=== PATIENT | male | born 1975 | race Hispanic/Latino ===

== ENCOUNTER 2017-12-09 12:16 | Emergency (ER) | payer SELFPAY ==
[2017-12-09] MEDS ORDERED: IPRATROPIUM/ALBUTEROL SULFATE 3 ML SOLUTION IH ONE (13:07)
[2017-12-09 13:55] LABS: RAPID GROUP A STREP NEGATIVE (NEGATIVE)
== END 2017-12-09 14:37 | disposition home or self-care (01) ==
LOC: EDH 12:16
DX: J06.9 Acute upper respiratory infection, unspecified (principal); Z87.891 Personal history of nicotine dependence
CPT/HCPCS: 87804; 87880